=== PATIENT | female | born 1940 | race Caucasian/White ===

== ENCOUNTER 2022-04-04 07:34 | Emergency (ER) | payer MEDICARE ==
[~2022-04-04 07:34] MED LIST: CALCIUM CITRAT1 EAC1 PO; SYNTHROID25 MCG PO; VITAMIN D1000 UNI1 PO
[2022-04-04 08:45] LABS: BASOPHIL 2.1 % (0-2); EOSINOPHIL 6.1 % (0-7); HCT 39.6 % (37.0-47.0); LYMPHOCYTE 27.3 % (15-48); MCH 30.7 pg (25.0-31.0); MCHC 32.8 g/dL (32.0-36.0); MCV 93.6 fL (78.0-100.0); MONOCYTE 11.4 % (0-12); NEUTROPHIL 52.9 % (41-80); NRBC 0; PLT 187 K/uL (150-400); RBC 4.23 M/uL (4.20-5.40); RDW 13.5 % (11.5-14.0); WBC 4.7 K/uL (4.0-10.5)
[2022-04-04 08:50] LABS: INR 0.94 (0.9-1.2); PROTHROMBIN TIME 12.3 SECONDS (11.9-13.9); PTT 31.4 SECONDS (24.9-34.6)
[2022-04-04 09:05] LABS: BILIRUBIN NEGATIVE (NEGATIVE); BLOOD 1+ Ery/uL (NEGATIVE); CLARITY CLEAR (CLEAR); COLOR YELLOW (YELLOW); GLUCOSE (U) NORMAL (NORMAL); LEUKOCYTES 3+ Leu/uL (NEGATIVE); NITRITE NEGATIVE (NEGATIVE); PROTEIN NEGATIVE (NEGATIVE); SPECIFIC GRAVITY <=1.005 (1.001-1.030); UROBILINOGEN 0.2 mg/dL (0.2-1.0)
[2022-04-04 10:11] LABS: ALBUMIN 3.5 g/dL (3.4-5.0); BILIRUBIN - TOTAL 0.5 mg/dL (0.2-1.0); BUN/CREAT RATIO (CALC) 18.3 RATIO; CREATININE 0.71 mg/dL (0.51-0.95); FT4 (FREE T4) 1.1 ng/dL (0.76-1.46); GLOBULIN (CALCULATION) 3.1 g/dL; POTASSIUM 3.7 mmol/L (3.5-5.1); TOTAL PROTEIN 6.6 g/dL (6.4-8.2)
== END 2022-04-04 15:21 | disposition home or self-care (01) ==
LOC: FER 07:34
PROVIDERS: Emergency Medicine
DX: R27.0 Ataxia, unspecified (principal); I48.0 Paroxysmal atrial fibrillation; Z88.8 Allergy status to other drugs, medicaments and biological substances; Z79.899 Other long term (current) drug therapy
CPT/HCPCS: 36415; 70450; 70551; 80053; 81001; 83735; 84439; 84443; 84484; 85025; 85610; 85730; 93005; J7030